=== PATIENT | female | born 1930 | race Caucasian/White ===

== ENCOUNTER 2017-07-27 17:34 | Observation (INO) | payer OTHER ==
[~2017-07-27] VITALS: Ht 162.6 cm; Wt 99.0 kg
[~2017-07-27 17:34] MED LIST: AUGMENTIN875 MG PO; CALTRATE 6001 TABLE1 PO; CEFDINIR300 MG PO; CENTRUM SILV1 TABLE1 PO; CLARITIN10 M3 PO; Calcium PO; Claritin,Alavart PO; Ecotrin PO; FISH OIL; FLAGYL500 MG PO; Feosol PO; Flonase BOTH NARES; K-DUR10 ME2 PO; LEVAQUIN750 MG PO; LOPRESSOR25 MG PO; Lasix PO; MVI; OMEGA 3-6-91200 MG PO; PATADAY BOTH EYES; PERCOCET; PERCOCET 5/31 TABLET PO; PREMARIN0.3 MG PO; PRESERVISION A1 EAC2 PO; PRILOSEC; PRILOSEC40 MG PO; PROAIR HFA8.5 GM IH; PriLOSEC PO; Proventil,Ventolin H IH; ROBITUSSIN AC,T10 ML PO; SENOKOT S,PE1 TABLET PO; SUPER B COM1 CAPSULE PO; SYSTANE 0.300 DROP/1 BOTH EYES; SYSTANE BALANCE10 ML BOTH EYES; VITAMIN D; VITAMIN D1000 INTUN PO; VITAMIN D31000 UNI2 PO; Vicodin,Lortab 5/500 PO; ZYRTEC10 M3 PO
[2017-07-27 18:15] LABS: BASOPHIL (%) 0.1 % (0-1); EOSINOPHIL (%) 0.2 % (0-5); HEMATOCRIT 37.1 % (36.0-46.0); HEMOGLOBIN 12.6 G/DL (11.9-15.5); IMMATURE GRANULOCYTE (%) 0.6 % (0.0-0.7); LYMPHOCYTE (%) 26.8 % (15-42); LYMPHOCYTE COUNT 2.6 K/uL (1.0-2.8); MCH 30.3 PG (29.0-34.0); MCV 89.2 FL (83-99); MONOCYTE (%) 5.5 % (3-12); MONOCYTE COUNT 0.5 K/uL (0-0.8); NEUTROPHIL (%) 66.8 % (45-76); NEUTROPHIL COUNT 6.4 K/uL (1.8-6.4); PLATELET COUNT 168 K/uL (156-360); RBC DIS.WIDTH-CV 13.2 % (11.8-14.6); RBC DIS.WIDTH-SD 43.2 % (39-53); RED BLOOD COUNT 4.16 M/uL (3.80-5.20); WHITE BLOOD COUNT 9.6 K/uL (4.1-10.2)
[2017-07-27] MEDS ORDERED: PROBIOTIC1 EAC1 PO (18:22)
[2017-07-27] MEDS ORDERED: CALCIUM 600 +1 EAC1 PO (18:24)
[2017-07-27] MEDS ORDERED: VITAMIN C1000 MG PO (18:25)
[2017-07-27] MEDS ORDERED: HYDROCHLOROTHIA25 MG PO (18:26)
[2017-07-27] MEDS ORDERED: PREMARIN0.3 MG PO (18:27)
[2017-07-27 18:30] LABS: CHLORIDE 100 mEq/L (99-109); POTASSIUM 4.4 mEq/L (3.7-5.4); SODIUM 138 mEq/L (136-147)
[2017-07-27 18:32] LABS: GLUCOSE 107 mg/dL (70-99); TOTAL PROTEIN 6.7 g/dL (6.4-8.3)
[2017-07-27 18:34] LABS: TOTAL BILIRUBIN 0.4 mg/dL (0.0-1.0)
[2017-07-27 18:36] LABS: ALKALINE PHOSPHATASE 87 IU/L (3-129); CREATININE 0.9 mg/dL (0.6-1.3); GFR ESTIMATE (CALCULATED) > 59 mL/min/
[2017-07-27 18:37] LABS: AST (GOT) 18 IU/L (2-34); UREA NITROGEN (BUN) 22 mg/dL (9-23)
[2017-07-27 18:39] LABS: ALT (GPT) 20 IU/L (3-49)
[2017-07-27 18:40] LABS: TROP-I INTERPRETATION NEGATIVE; TROPONIN-I < 0.01 ng/mL (0.0-0.30)
[2017-07-27 19:08] LABS: APPEARANCE CLEAR ((CLEAR)); BILIRUBIN NEGATIVE; BLOOD NEGATIVE; COLOR STRAW ((YELLOW)); GLUCOSE (STRIP) NEGATIVE; KETONES NEGATIVE; LEUKOCYTES NEGATIVE; NITRITE NEGATIVE; PROTEIN (STRIP) NEGATIVE; SPECIFIC GRAVITY 1.005 (1.000-1.030); UCUL ADDED? NO; UROBILINOGEN 0.2 MG/DL (0.2-1.0)
[2017-07-27] MEDS ORDERED: CLARITIN,ALAVAR10 MG PO (20:47)
[2017-07-28 01:26] VITALS: BP 128/66
[2017-07-28 04:32] VITALS: BP 104/53
[2017-07-28 07:17] LABS: HEMATOCRIT 34.5 % (36.0-46.0); HEMOGLOBIN 11.3 G/DL (11.9-15.5); MCH 29.6 PG (29.0-34.0); MCHC 32.8 G/DL (30.0-36.0); MCV 90.3 FL (83-99); PLATELET COUNT 159 K/uL (156-360); RBC DIS.WIDTH-CV 13.6 % (11.8-14.6); RBC DIS.WIDTH-SD 44.4 % (39-53); RED BLOOD COUNT 3.82 M/uL (3.80-5.20)
[2017-07-28 07:33] VITALS: BP 113/59
[2017-07-28 07:38] LABS: TROP-I INTERPRETATION NEGATIVE; TROPONIN-I < 0.01 ng/mL (0.0-0.30)
[2017-07-28 07:48] LABS: CHLORIDE 101 MEQ/L (99-109); CREATININE 0.9 MG/DL (0.6-1.3); GFR ESTIMATE (CALCULATED) > 59 mL/min/; GLUCOSE 93 mg/dL (70-99); SODIUM 139 MEQ/L (136-147); UREA NITROGEN (BUN) 22 mg/dL (9-23)
[2017-07-28 11:31] VITALS: BP 100/58
[2017-07-28 13:03] LABS: TROP-I INTERPRETATION NEGATIVE; TROPONIN-I < 0.01 ng/mL (0.0-0.30)
[2017-07-28] MEDS ORDERED: AZITHROMYCIN500 M1 PO (13:11)
[2017-07-28] MEDS ORDERED: ACIDOPHILUS LA1 EACH PO (13:12)
[2017-07-28] MEDS ORDERED: MUCINEX600 MG PO (13:12)
== END 2017-07-28 15:03 | disposition home or self-care (01) ==
LOC: EME 17:34 → 5WEST 21:55 → EDOF 21:55 → ENRESERV 21:58 → 5WEST 23:52
PROVIDERS: Emergency Medicine; Hospitalist
DX: R07.9 Chest pain, unspecified (principal); J45.909 Unspecified asthma, uncomplicated; K21.9 Gastro-esophageal reflux disease without esophagitis; I10 Essential (primary) hypertension; G43.909 Migraine, unspecified, not intractable, without status migrainosus; R11.0 Nausea; K44.9 Diaphragmatic hernia without obstruction or gangrene; Z85.820 Personal history of malignant melanoma of skin; Z96.651 Presence of right artificial knee joint; Z90.49 Acquired absence of other specified parts of digestive tract; Z90.710 Acquired absence of both cervix and uterus; Z82.49 Family history of ischemic heart disease and other diseases of the circulatory system; Z82.61 Family history of arthritis; Z82.0 Family history of epilepsy and other diseases of the nervous system; Z80.9 Family history of malignant neoplasm, unspecified; Z88.6 Allergy status to analgesic agent; Z88.5 Allergy status to narcotic agent; Z88.8 Allergy status to other drugs, medicaments and biological substances; Z91.011 Allergy to milk products
CPT/HCPCS: 71046; 80048; 80053; 81003; 84484; 85025; 85027; 93005; 94640; 99202; 99281; 99285; G0378

== ENCOUNTER 2017-08-22 16:20 | Emergency (ER) | payer OTHER ==
[~2017-08-22] VITALS: Ht 162.6 cm; Wt 94.4 kg
[~2017-08-22 16:20] MED LIST changes: +ACIDOPHILUS LA1 EACH PO; +AZITHROMYCIN500 M1 PO; +CALCIUM 600 +1 EAC1 PO; +CLARITIN,ALAVAR10 MG PO; +HYDROCHLOROTHIA25 MG PO; +MUCINEX600 MG PO; +PROBIOTIC1 EAC1 PO; +VITAMIN C1000 MG PO
[2017-08-22] MEDS ORDERED: MIRALAX119 GM PO (19:39)
[2017-08-22] MEDS ORDERED: LIDOCAINE5 GM TP (19:39)
[2017-08-22 19:56] VITALS: BP 150/97
== END 2017-08-22 19:56 | disposition home or self-care (01) ==
LOC: EME 16:20
DX: K60.2 Anal fissure, unspecified (principal); K57.50 Diverticulosis of both small and large intestine without perforation or abscess without bleeding; I10 Essential (primary) hypertension; K21.9 Gastro-esophageal reflux disease without esophagitis; J45.909 Unspecified asthma, uncomplicated; M79.7 Fibromyalgia; F41.9 Anxiety disorder, unspecified; Z79.51 Long term (current) use of inhaled steroids; Z87.19 Personal history of other diseases of the digestive system; Z85.820 Personal history of malignant melanoma of skin; Z90.49 Acquired absence of other specified parts of digestive tract; Z90.89 Acquired absence of other organs; Z91.011 Allergy to milk products; Z91.012 Allergy to eggs; Z91.048 Other nonmedicinal substance allergy status; Z88.5 Allergy status to narcotic agent; Z88.6 Allergy status to analgesic agent; Z88.8 Allergy status to other drugs, medicaments and biological substances
CPT/HCPCS: 74019; 99281; 99284